=== PATIENT | female | born 1965 | race Caucasian/White ===

== ENCOUNTER 2017-11-08 08:00 | Outpatient (CLI) | payer OTHER ==
--- NOTE | 2017-11-15 17:36 | MMO ---
BILATERAL SCREENING MAMMOGRAM: 11/08/17 COMPARISON: 10/01/10, 08/05/15, 08/05/08. HISTORY: 52-year-old female. Routine screening mammography. TECHNIQUE: CC and MLO views of both breasts are submitted for interpretation. This patient's mammogram is review ed with the assistance of computer aided detection. The breasts are composed of scattered fibroglandular tissue. Bilaterally, no suspicious dominant mass , architectural distortion or suspicious calcification. Bilateral benign appearing calcifications are present. IMPRESSION: BIRADS 2: Benign Finding(s) RECOMMENDATION: Routine annual screening mammography (for women over age 40). POS: [facility]
== END 2017-11-08 08:01 | disposition home or self-care (01) ==
LOC: SCSMAMMO 08:00
PROVIDERS: ATTEND Family Medicine
DX: Z12.31 Encounter for screening mammogram for malignant neoplasm of breast (principal)
CPT/HCPCS: 77067

== ENCOUNTER 2018-01-27 06:52 | Day surgery (SDC) | payer OTHER ==
[2018-01-26 11:18] VITALS: BMI 28.0
--- NOTE | 2018-01-27 03:31 | HP ---
SHORT-STAY HISTORY AND PHYSICAL HISTORY OF PRESENT ILLNESS: This is a 53-year-old female who comes with a colonoscopy for colon cancer screening. The patient has no surgeries recently. No history of abdominal pain. No hematochezia. There is no family history of colon cancer. ALLERGIES: NONE. MEDICAL ILLNESS: 1. Hyperlipidemia. 2. Diabetes. 3. Hypertension. 4. History of atrial flutter, irregular heart rate in the past. SOCIAL HISTORY: The patient does not smoke or drink alcohol. PHYSICAL EXAMINATION: VITAL SIGNS: Pulse is 70, blood pressure 130/70. HEENT: Conjunctiva are clear. CARDIOVASCULAR: First and second heart sounds. LUNGS: Clear to auscultation. ABDOMEN: Soft. No organomegaly. No tenderness. No masses. ADMITTING DIAGNOSIS: A 53-year-old female comes with a colonoscopy for colon cancer screening. Job ID: [id number]
--- NOTE | 2018-01-27 13:58 | OP ---
DATE OF PROCEDURE: 01/27/2018 OPERATIVE PROCEDURE: Colonoscopy. PREOPERATIVE DIAGNOSIS: A 53-year-old [place] female, undergoing colonoscopy for colon cancer screening. POSTOPERATIVE DIAGNOSIS: Normal colonoscopy except for hemorrhoids. DESCRIPTION OF PROCEDURE: The patient was placed on the left lateral position and was given sedation by Anesthesia Department. A rectal exam was done. The scope was advanced into the rectum. No lesions felt on rectal exam. A [employer] video colonoscope was first introduced into the rectum and advanced all the way to the cecum. The prep was excellent. The mucosa appeared normal throughout the colon with normal vascular pattern. The appendiceal orifice, ileocecal valve, cecum, no pathology seen. Withdrawal of the scope from the cecum, ascending colon, hepatic flexure, transverse colon, splenic flexure, no pathology seen. The descending colon, sigmoid colon, no pathology seen. Retroflexion of scope in the rectum showed hemorrhoids. DISCHARGE PLANNING: This is a 53-year-old [place] female came for a colonoscopy for colon cancer screening. The colonoscopy showed no pathology except for hemorrhoids. DISCHARGE RECOMMENDATION: 1. The patient is advised to call me, if she develops any abdominal pain, hematochezia. 2. Repeat colonoscopy in 10 years. Job ID: [id number]
[2018-01-27] MEDS ORDERED: PROPOFOL 200 MG/20 ML VIAL ONE (21:10)
[2018-01-27] MEDS ORDERED: Lidocaine 1% PF 5 ML VIAL ONE (21:10)
== END 2018-01-27 09:12 | disposition home or self-care (01) ==
LOC: SDC 06:52
PROVIDERS: ATTEND Internal Medicine Gastroenterology
PROC: 0DJD8ZZ Inspection of Lower Intestinal Tract, Via Natural or Artificial Opening Endoscopic (ICD-10-PCS; principal; 2018-01-27)
DX: Z12.11 Encounter for screening for malignant neoplasm of colon (principal); K64.9 Unspecified hemorrhoids; E78.5 Hyperlipidemia, unspecified; E11.9 Type 2 diabetes mellitus without complications; I10 Essential (primary) hypertension; I48.92 Unspecified atrial flutter; Z79.82 Long term (current) use of aspirin; Z79.84 Long term (current) use of oral hypoglycemic drugs; Z79.899 Other long term (current) drug therapy
CPT/HCPCS: J2001; J2704